=== PATIENT | female | born 1970 | race Caucasian/White ===

== ENCOUNTER → 2016-12-22 | Outpatient (CLI) | payer OTHER ==
[~2016-12-22] VITALS: Ht 177.8 cm; Wt 97.1 kg
[2016-12-22 16:30] LABS: HEMOGLOBIN 13.5 gm/dl (12.3-15.3); RED BLOOD COUNT 4.72 M/UL (4.00-5.10); WHITE BLOOD COUNT 9.6 K/UL (4.5-11.0)
[2016-12-22 16:54] LABS: BUN/CREATININE RATIO 8 (0-10)
== END ==
LOC: OPSV 15:55
PROVIDERS: Internal Medicine Infectious Disease
DX: T82.7XXA Infection and inflammatory reaction due to other cardiac and vascular devices, implants and grafts, initial encounter (principal)
CPT/HCPCS: 36415; 80053; 85025; 86140; 96374; J2997

== ENCOUNTER → 2016-12-29 | Outpatient (CLI) | payer OTHER ==
[2016-12-29 11:22] LABS: HEMOGLOBIN 13.2 gm/dl (12.3-15.3); RED BLOOD COUNT 4.63 M/UL (4.00-5.10); WHITE BLOOD COUNT 13.2 K/UL (4.5-11.0)
[2016-12-29 11:48] LABS: BUN/CREATININE RATIO 7 (0-10)
== END ==
LOC: OPSV 10:45
PROVIDERS: Internal Medicine Infectious Disease
DX: T82.7XXA Infection and inflammatory reaction due to other cardiac and vascular devices, implants and grafts, initial encounter (principal)
CPT/HCPCS: 36592; 80053; 80202; 85025; 86140; G0463

== ENCOUNTER → 2017-01-06 | Outpatient (CLI) | payer OTHER ==
[2017-01-06 12:22] LABS: HEMOGLOBIN 12.9 gm/dl (12.3-15.3); RED BLOOD COUNT 4.58 M/UL (4.00-5.10); WHITE BLOOD COUNT 10.3 K/UL (4.5-11.0)
== END ==
LOC: OPSV 01-05 11:00
PROVIDERS: Internal Medicine Infectious Disease
DX: T85.79XD Infection and inflammatory reaction due to other internal prosthetic devices, implants and grafts, subsequent encounter (principal)
CPT/HCPCS: 36592; 80053; 80202; 85025; 86140; G0463

== ENCOUNTER → 2017-01-12 | Outpatient (CLI) | payer OTHER ==
[2017-01-12 13:17] LABS: HEMOGLOBIN 13.8 gm/dl (12.3-15.3); RED BLOOD COUNT 4.85 M/UL (4.00-5.10); WHITE BLOOD COUNT 12.3 K/UL (4.5-11.0)
== END ==
LOC: OPSV 12:39
PROVIDERS: Internal Medicine Infectious Disease
DX: T82.7XXA Infection and inflammatory reaction due to other cardiac and vascular devices, implants and grafts, initial encounter (principal)
CPT/HCPCS: 36592; 80053; 80202; 85025; 86140; G0463

== ENCOUNTER → 2017-01-20 | Outpatient (CLI) | payer OTHER ==
[2017-01-20 13:52] LABS: HEMOGLOBIN 11.7 gm/dl (12.3-15.3); RED BLOOD COUNT 4.21 M/UL (4.00-5.10); WHITE BLOOD COUNT 17.8 K/UL (4.5-11.0)
[2017-01-20 14:14] LABS: BUN/CREATININE RATIO 9 (0-10)
== END ==
LOC: OPSV 13:00
PROVIDERS: Internal Medicine Infectious Disease
DX: T85.79XD Infection and inflammatory reaction due to other internal prosthetic devices, implants and grafts, subsequent encounter (principal)
CPT/HCPCS: 36415; 80048; 81001; 85025; 86140; 87086; G0463

== ENCOUNTER → 2017-01-28 | Outpatient (CLI) | payer OTHER ==
[2017-01-28 12:51] LABS: HEMOGLOBIN 11.5 gm/dl (12.3-15.3); RED BLOOD COUNT 4.14 M/UL (4.00-5.10); WHITE BLOOD COUNT 10.8 K/UL (4.5-11.0)
[2017-01-28 13:10] LABS: BUN/CREATININE RATIO 13 (0-10)
== END ==
LOC: OPSV 11:57
PROVIDERS: Internal Medicine Infectious Disease
DX: T82.7XXA Infection and inflammatory reaction due to other cardiac and vascular devices, implants and grafts, initial encounter (principal)
CPT/HCPCS: 36415; 80053; 80202; 85025; 86140; G0463